=== PATIENT | male | born 1965 | race Caucasian/White ===

== ENCOUNTER → 2023-08-10 08:54 | Outpatient (CLI) | payer OTHER, SELFPAY ==
[2023-08-10 19:23] LABS: Add Manual Diff / Slide Review NO; Basophils Absolute Auto 100 /uL (0-100); Basophils Percent Auto 0.8 % (0-2); Eosinophils Absolute Auto 100 /uL (0-450); Eosinophils Percent Auto 1.7 % (2-4); Hematocrit 49.2 % (41-53); Hemoglobin 16.5 g/dL (13.5-17.5); Lymphocytes Absolute Auto 2100 /uL (1100-4500); Lymphocytes Percent Auto 27.4 % (25-40); Mean Corpuscular HGB Conc 33.4 % (30-36); Mean Corpuscular Volume 89.6 fL (80-100); Monocytes Absolute Auto 800 /uL (0-900); Monocytes Percent Auto 10.4 % (3-14); Neutrophils Absolute Auto 4600 /uL (1500-7000); Neutrophils Percent Auto 59.7 % (50-75); Platelet Count 253 X10^3/uL (150-400); Red Blood Cell Count 5.49 X10^6/uL (4.5-5.9); Red Cell Distribution Width 13.9 % (11.6-14.8); White Blood Cell Count 7.7 X10^3/uL (4.5-11.0)
[2023-08-10 19:31] LABS: Alanine Aminotransferase 37 IU/L (<50); Albumin 4.4 g/dL (3.5-5.0); Albumin Globulin Ratio 1.3 (1.0-2.8); Alkaline Phosphatase 67 U/L (38-126); Aspartate Aminotransferase 37 IU/L (17-59); BUN Creatinine Ratio 14.3 (6-22); Bilirubin Total 1.6 mg/dL (0.2-1.3); Blood Urea Nitrogen 13 mg/dL (9-20); Calcium 9.8 mg/dL (8.4-10.2); Carbon Dioxide 28 mmol/L (22-32); Chloride 102 mmol/L (98-107); Cholesterol 261 mg/dL (140-199); Estimated Glomerular Filt Rate > 60 mL/min (>60); Globulin 3.4 g/dL (1.7-4.1); Glucose 102 mg/dL (70-100); HDL Cholesterol 54 mg/dL (40-60); HEMOLYSIS < 15 (0-50); LDL Cholesterol Calculated 172 mg/dL (<100); Potassium 4.5 mmol/L (3.4-5.1); Sodium 139 mmol/L (137-145); Total Protein 7.8 g/dL (6.3-8.2); Triglycerides 175 mg/dL (35-150)
[2023-08-10 19:55] LABS: Prostate Specific Antigen 0.183 ng/mL (0.10-4.00)
== END ==
PROVIDERS: Family Provider Family Medicine; PCP Family Medicine; Visit Provider Family Medicine
DX: Z13.1 Encounter for screening for diabetes mellitus (principal); Z12.5 Encounter for screening for malignant neoplasm of prostate; Z71.85 Encounter for immunization safety counseling; E78.2 Mixed hyperlipidemia
CPT/HCPCS: 80053; 80061; 84153; 85025

== ENCOUNTER → 2023-09-06 15:19 | Outpatient (CLI) | payer OTHER, SELFPAY ==
--- NOTE | 2023-09-07 02:44 | DI.NM.S_ITS ---
DATE OF SERVICE: 09/06/2023 PROCEDURE: Exercise stress test. INDICATIONS: Family history of coronary artery disease. CARDIAC STRESS: The patient underwent exercise stress test under the supervision of an attending staff. He walked on Lan protocol for 10 minutes and 05 seconds, achieved maximum heart rate of 152, which was 94% of target heart rate. Peak blood pressure 198/98 mmHg. Achieved 12.8 METs of workload and MARCIN -13%. Baseline rhythm sinus with repolarization changes. During stress, no convincing ischemic changes seen. Occasional PVCs. Frequent PACs in early recovery and one ventricular couplet. No complex ventricular arrhythmias like ventricular tachycardia or AFib seen. No chest pain. Had some shortness of breath. CONCLUSION: Exercise stress test is negative for inducible ischemia. Good exercise tolerance. Hypertensive BP response. No convincing ischemic changes. Occasional PVCs as well as intermittent PACs predominantly in recovery. No obvious AFib or ventricular tachycardia. No anginal symptoms. Overall, low-risk exercise stress test. Channing Albarado - RAYMUNDO/stephanie/leonela doc#: [id number]/job#: [id number] dd: 09/06/2023 16:35:00 dt: 09/07/2023 02:16:00 DICTATING MD/COPIES TO: Rosalinda Bennett MD COPIES MNE: ALBA;
== END ==
PROVIDERS: Family Provider Family Medicine; PCP Family Medicine; Referring Provider Family Medicine; Visit Provider Family Medicine
DX: R61 Generalized hyperhidrosis (principal); Z82.49 Family history of ischemic heart disease and other diseases of the circulatory system; E78.2 Mixed hyperlipidemia
CPT/HCPCS: 93017

== ENCOUNTER → 2023-12-08 09:56 | Outpatient (CLI) | payer OTHER, SELFPAY ==
[2023-12-08 20:10] LABS: Cholesterol 146 mg/dL (140-199); HDL Cholesterol 85 mg/dL (40-60); LDL Cholesterol Calculated 51 mg/dL (<100); Triglycerides 49 mg/dL (35-150)
== END ==
PROVIDERS: PCP Family Medicine; Visit Provider Family Medicine
DX: E78.2 Mixed hyperlipidemia (principal); Z82.49 Family history of ischemic heart disease and other diseases of the circulatory system
CPT/HCPCS: 80061

== ENCOUNTER → 2024-12-06 09:25 | Outpatient (CLI) | payer BC, SELFPAY ==
[2024-12-06 19:59] LABS: Add Manual Diff / Slide Review NO; Basophils Absolute Auto 0 /uL (0-100); Basophils Percent Auto 0.7 % (0-2); Eosinophils Absolute Auto 100 /uL (0-450); Eosinophils Percent Auto 1.2 % (2-4); Hematocrit 48.8 % (41-53); Hemoglobin 16.5 g/dL (13.5-17.5); Lymphocytes Absolute Auto 1800 /uL (1100-4500); Lymphocytes Percent Auto 30.5 % (25-40); Mean Corpuscular HGB Conc 33.8 % (30-36); Mean Corpuscular Hemoglobin 30.2 PG (26-34); Mean Corpuscular Volume 89.3 fL (80-100); Monocytes Absolute Auto 600 /uL (0-900); Monocytes Percent Auto 9.3 % (3-14); Neutrophils Absolute Auto 3500 /uL (1500-7000); Neutrophils Percent Auto 58.3 % (50-75); Platelet Count 218 X10^3/uL (150-400); Red Blood Cell Count 5.47 X10^6/uL (4.5-5.9); White Blood Cell Count 6.1 X10^3/uL (4.5-11.0)
[2024-12-06 20:07] LABS: BUN Creatinine Ratio 16.5 (6-22); Blood Urea Nitrogen 15 mg/dL (9-20); Calcium 9.4 mg/dL (8.4-10.2); Carbon Dioxide 27 mmol/L (22-32); Chloride 104 mmol/L (98-107); Cholesterol 185 mg/dL (140-199); Estimated Glomerular Filt Rate > 60 mL/min (>60); Glucose 99 mg/dL (70-99); HDL Cholesterol 91 mg/dL (40-60); HEMOLYSIS 17 (0-50); LDL Cholesterol Calculated 75 mg/dL (<100); Potassium 4.3 mmol/L (3.4-5.1); Sodium 139 mmol/L (137-145); Triglycerides 95 mg/dL (35-150)
[2024-12-06 20:40] LABS: Prostate Specific Antigen Scrn 0.241 ng/mL (0.1-4.0)
== END ==
PROVIDERS: PCP Family Medicine; Visit Provider Family Medicine
DX: Z12.5 Encounter for screening for malignant neoplasm of prostate (principal); E78.5 Hyperlipidemia, unspecified; N52.9 Male erectile dysfunction, unspecified; Z82.49 Family history of ischemic heart disease and other diseases of the circulatory system
CPT/HCPCS: 80048; 80061; 85025; G0103

== ENCOUNTER 2025-05-03 09:27 | Day surgery (SDC) | payer BC, SELFPAY ==
--- NOTE | 2025-05-03 | PATH_ITS ---
[facility] Accession Number: [id number] No. of containers..01 Tissue . 01 Material submitted: . colon - CECAL POLYP . 01 Diagnosis: CECAL POLYP: Colonic mucosa with no diagnostic abnormality, consistent with polypoid redundancy. Deeper level examination performed. MRV 05/13/2025 1620 Local . 01 Electronically signed: . Cindy Bee MD, Pathologist NPI- [id number] . 01 Gross description: . Received in formalin labeled with two patient identifiers and cecal polyp, and consists of a single, 0.7 cm in greatest dimension ro tissue. Submitted in toto in cassette A1. ([id number]) /KATHRYN 05/08/2025 2236 Local . 01 Pathologist provided ICD-10: Z12.11 . 01 CPT . 609352 Specimen Comment: A courtesy copy of this report has been sent to [phone] Performed at: [address] [facility] [address], [place], [place] [id number] MD Shade Munoz MD Phone: [phone]
[2025-05-03 09:56] VITALS: BP 144/89; PULSE 52; RESP 16; TEMP 36.2; O2SAT 98
[2025-05-03] MEDS: LACTATED RINGERS 1,000 ML 42 ML IV (10:01)
--- NOTE | 2025-05-03 10:13 | P.HP_ITS ---
History of Present Illness History of Present Illness Date Patient Seen: 05/03/25 Time Patient Seen: 10:13 Chief complaint: SDC Narrative: Joseluis is a 60-year-old man here for a colonoscopy. His last was 6 or 7 years ago and he had a few small polyps removed. [facility] Medical History (Updated 05/03/25 @ 10:13 by Stephan Suarez MD) Screening for prostate cancer Family history of ASCVD (arteriosclerotic cardiovascular disease) Encounter for general adult medical examination w/o abnormal findings Social History Smoking Status: Never smoker alcohol intake: current Meds Home Medications and Allergies Home Medications ?Medication ?Instructions ?Recorded ?Confirmed ?Type ezetimibe 10 mg tablet (Zetia) 10 mg PO DAILY #90 tabs 02/06/25 05/03/25 Rx rosuvastatin 20 mg tablet (Crestor) 20 mg PO DAILY #90 tabs 02/06/25 05/03/25 Rx Allergies Allergy/AdvReac Type Severity Reaction Status Date / Time No Known Drug Allergies Allergy Verified 05/03/25 09:45 Exam Vital Signs (past 8 hours): - 05/03/25 09:56 Temperature 97.1 F L Pulse Rate 52 L Respiratory Rate 16 Blood Pressure 144/89 H Pulse Oximetry 98 Oxygen Delivery Method Room Air Oxygen Delivery Method Room Air Const General: healthy appearing Assessment & Plan Assessment and plan (1) Colon cancer screening: Status: Acute Plan Colonoscopy Time-Based Coding :: [TOTAL MINUTES] spent with patient and on the chart (including review of chart, obtaining history, exam, reviewing outside data, placing orders, documenting exam and treatment plan, and counseling patient) on [DATE]. PROFEE Bender Hand Document charge(s): No
--- NOTE | 2025-05-03 10:34 | P.OP.COLON_ITS ---
Operative Date/Time/Diagnoses Date of procedure: 05/03/25 Time of procedure: 10:38 Pre-op diagnosis: Colon cancer screening Post-op diagnosis: same Procedure & Clinicians Study performed: Colonoscopy Same procedure(s) as scheduled: Yes Surgeon: Stephan Suarez Anesthesia Type: MAC +/- Procedure Notes Procedure in detail: Surgeon: Stephan Suarez MD Anesthesia: Emily Tor INSURANCE FOLLOW UP REPRESENTATIVE Procedure: The patient was brought to the endoscopy suite, placed in left lateral decubitus position. The patient was connected to monitoring devices. A time-out was performed. Sedation was administered. Once the patient was adequately sedated, a digital rectal exam was performed and was normal. The scope was then inserted and advanced to the cecum where the appendiceal orifice was identified and photographed. The scope was then slowly withdrawn over greater than 6 minutes. The mucosa was thoroughly inspected. There was a 3 mm polyp in the cecum removed with a cold snare. The scope was retroflexed in the rectum. No other abnormalities were noted. The scope was straightened and removed. The patient was awakened and brought to recovery. Scope withdrawal time: 7 minutes Sedation time: 9 minutes EBL: 3 mL Findings: 3 mm cecal polyp Post-procedure Disposition: PACU
[2025-05-03 10:37] VITALS: BP 100/64; PULSE 54; RESP 18; TEMP 36.7; O2SAT 96
[2025-05-03 10:43] VITALS: BP 98/61; PULSE 47; RESP 15; O2SAT 96
[2025-05-03 10:52] VITALS: BP 116/74; PULSE 55; RESP 16; TEMP 36.5; O2SAT 99
[2025-05-03 11:14] VITALS: BP 114/61
== END 2025-05-03 11:15 | disposition home or self-care (01) ==
PROVIDERS: Surgery; PCP Family Medicine; Referring Provider Surgery; Visit Provider Surgery
PROC: 0DJD8ZZ Inspection of Lower Intestinal Tract, Via Natural or Artificial Opening Endoscopic (ICD-10-PCS; CPT 45378; principal; 2025-05-03 10:30)
DX: Z12.11 Encounter for screening for malignant neoplasm of colon (principal); Z86.0100 Personal history of colon polyps, unspecified; K63.5 Polyp of colon
CPT/HCPCS: 45385; J2704